=== PATIENT | female | born 1960 | race Caucasian/White ===

== ENCOUNTER → 2016-07-29 | Outpatient (CLI) | payer OTHER ==
--- NOTE | ~2016-07-29 | MR113 ---
[facility] A Service of [facility] & [facility] RADIOLOGY TEXT RESULTS PATIENT: NEEL GRECO LOCATION: [facility] : 62 UNIT #: [id number] AGE: [address]: Jaime Balderas MD SEX: F ORDER DR: [id number] [facility] [address] [place], [place] [address] [id number] O MR#: [id number] Acc #: [id number] NAME: NEEL GRECO : 1960 SEX: F STUDY DATE/TIME: 07/29/2016 13:28 UNIT: [facility] ROOM: STUDY DESCRIPTION: MR Lumbar Wo Contrast Attending Physician: Jaime Balderas M.D. Referring Physician: Jaime Balderas M.D. Ordering Physician: Jaime Balderas M.D. Primary Care Physician: More Valera M.D. MRI CENTER REPORT This report is preliminary unless electronic signature is present. EXAM MRI lumbar spine without 07/29/2016 HISTORY Lumbar fusion and 2007. Several falls most recent fall 2 months ago with severe low back pain beginning 2 months ago with shooting pain and numbness from lumbar spine down both legs posteriorly to feet. COMMENT MRI of the lumbar spine performed without contrast. COMPARISON STUDIES There is plain film comparison from 2006. FINDINGS Redemonstrated are pedicle screws bilaterally L4-L5 with vertical and horizontal stabilization bars. On the MRI metal artifact is seen. The hardware is seen on the prior plain films. Redemonstrated is a component of levoconvex lumbar scoliosis. There is mild exaggeration of lumbar lordosis and in the interval since prior study there has been the development of grade 1 anterolisthesis of L3 on L4 and L5 on S1. This appears to measure about 5 mm L3-4 level and about 6 mm of L5-S1 level. It is probably due to facet arthritis at each of these levels though the bone detail is suboptimal especially at 3-4 because of the metal artifact. Where not obscured, bone marrow signal intensity is unremarkable allowing for some mild marrow endplate degenerative changes. Schmorl node formation is most prominent at T10-11, T11-12 where there is also mild anterior wedging of T11 and a concentric disc bulge at T11-12. There is only mild effacement of the thecal sac likely. The conus terminates at L1 level and is normal. At L1-2, there is foraminal compromise. [facility] A Service of [facility] & [facility] RADIOLOGY TEXT RESULTS PATIENT: NEEL GRECO LOCATION: [facility] : 62 UNIT #: [id number] AGE: [address]: Jaime Balderas MD SEX: F ORDER DR: At L2-3, there is facet degenerative change bilaterally, moderate ligamentum flavum thickening. There is a broad-based posterior protrusion/small extrusion extending cephalad from the disc level remaining contiguous with it. Combination of findings result in mild canal stenosis and mass effect on the right greater than left lateral recess. Mild inferior foraminal narrowing bilaterally. At L3-4, there is at least severe facet arthritis, moderate ligamentum flavum thickening, accounting for the anterolisthesis of 3 on 4. There is a broad-based posterior pseudo disc protrusion and the combination of findings result in [id number] canal stenosis and mass effect on right greater than left lateral recess. There is mild bilateral foraminal narrowing. At L4-5, there are postoperative changes. The canal is capacious. There is no recurrent extrusion suspected. There is mild concentric disc bulge. No significant foraminal impingement. At L5-S1, severe facet degenerative change bilaterally. There is broad-based posterior pseudo disc protrusion associated with the anterolisthesis of 5 on 1. There is mild mass effect on the bilateral-lateral recesses expected location S1 roots but only mild effacement of the thecal sac otherwise. There is at least mild foraminal narrowing bilaterally but there is partial obscuration of the foramen by the metal artifact. Partly seen is apparently dilatation of the common bile duct in the pancreatic head up to about 1.1 cm in dimension. If the patient has had a cholecystectomy this is probably postoperative but please correlate further clinically. I do not have any other imaging of this patient. IMPRESSION 1. Postoperative changes prior fusion posteriorly L4-5. Alignment is normal at postoperative level and there is no recurrent extrusion or canal stenosis suspected. 2. There has been the development of grade 1 anterolisthesis of L3 on L4 and L5 on S1 since the plain films of 2006, presumably degenerative due to facet arthritis. Please refer to the [id number] discussion of canal and foraminal compromise. There is also degenerative disc disease at the 2-3 level and at T11-12. 3. Apparently enlargement of the common bile duct in the pancreatic head. This is only partly in the field of view. Please correlate further clinically. This could simply be postoperative dilatation of the biliary tree if the patient has had a cholecystectomy but I do not have other imaging of this patient at this institution. Dictated by... Lucina Blackburn M.D. [facility] A Service of [facility] RADIOLOGY TEXT RESULTS PATIENT: NEEL GRECO LOCATION: [facility] #: [id number] : 62 UNIT #: [id number] AGE: [address]: Jaime Balderas MD SEX: F ORDER DR: THIS IS AN ELECTRONICALLY VERIFIED REPORT Lucina Blackburn M.D. at 07/30/2016 8:34 AM S[place] TD: 07/29/2016 18:11 JOB #: [id number] MRI CENTER REPORT Page 1 of 1 COPY
== END | disposition home or self-care (01) ==
LOC: CMRI 12:32
DX: M54.16 Radiculopathy, lumbar region (principal); M43.16 Spondylolisthesis, lumbar region; M43.17 Spondylolisthesis, lumbosacral region; M51.16 Intervertebral disc disorders with radiculopathy, lumbar region; M51.34 Other intervertebral disc degeneration, thoracic region; K83.8 Other specified diseases of biliary tract; Z98.1 Arthrodesis status
CPT/HCPCS: 72148